=== PATIENT | female | born 1975 | race African-American/Black ===

== ENCOUNTER 2019-12-10 09:55 | Emergency (ER) | payer SELFPAY ==
[~2019-12-10] VITALS: Ht 180.3 cm; Wt 149.7 kg
[2019-12-10 09:58] VITALS: BP 159/100
--- NOTE | 2019-12-10 10:08 | NUR ---
DR CARVALHO AT BEDSIDE EVALUATING PT.
--- NOTE | 2019-12-10 10:25 | NUR ---
PT C/O 2 DAYS COUGH ,NO FEVER PREVIOUS HXS OF COPD.PT AWAKE , ALERT, AFIBRILE , AMBULATORY WITH STEADY GAIT , SCE ,COARSE BS BLF , ROUND SOFT NABS NONTENDER ABDOMEN.
[2019-12-10 10:29] VITALS: BP 159/98
--- NOTE | 2019-12-10 10:30 | NUR ---
Patient discharged with v/s stable. Written and verbal after care instructions given and explained regarding copd. Patient alert, oriented and verbalized understanding of instructions. Ambulatory with steady gait. All questions addressed prior to discharge. ID band removed. Patient advised to follow up with PMD. Rx of prednisone and codiene po4 given. Patient educated on indication of medication including possible reaction and side effects. Opportunity to ask questions provided and answered.
== END 2019-12-10 10:30 | disposition home or self-care (01) ==
LOC: MED 09:55 → EEVIPCON 09:55 → MED 10:30
DX: J44.1 Chronic obstructive pulmonary disease with (acute) exacerbation (principal); Z88.8 Allergy status to other drugs, medicaments and biological substances; Z98.890 Other specified postprocedural states
CPT/HCPCS: 99283

== ENCOUNTER 2020-02-14 13:16 | Emergency (ER) | payer SELFPAY ==
[~2020-02-14] VITALS: Ht 180.3 cm; Wt 148.8 kg
[2020-02-14 13:21] VITALS: BP 169/95
--- NOTE | 2020-02-14 13:32 | NUR ---
45 Y/O FEMALE C/O ACUTE ON CHRONIC COUGH R/T COPD EXACERBATION SINCE TUESDAY. PT WAS TESTED TUESDAY FOR COVID AND WAS NEGATIVE. PT DENIES ANY FEVER/CHILLS, SOB, CONTACT WITH ANY COVID PTS. RESP EVEN AND UNLABORED. MILD WHEEZING HEARD IN BILAT LOBES. PT STATES SHE TOOK HER NEBULIZING TREATMENTS AT HOME TODAY WITH NO RELIEF.
[2020-02-14 14:08] VITALS: BP 158/91
--- NOTE | 2020-02-14 14:08 | NUR ---
Patient discharged with v/s stable. Written and verbal after care instructions given and explained. Patient alert, oriented and verbalized understanding of instructions. Ambulatory with steady gait. All questions addressed prior to discharge. ID band removed. Patient advised to follow up with PMD. Rx of CODEINE PHOSPHATE/PROMETHAZINE HYDROCHLORIDE 10MG AND PREDNISONE 20 MG given. Patient educated on indication of medication including possible reaction and side effects. Opportunity to ask questions provided and answered.
== END 2020-02-14 14:08 | disposition home or self-care (01) ==
LOC: MED 13:16
DX: J44.1 Chronic obstructive pulmonary disease with (acute) exacerbation (principal); R03.0 Elevated blood-pressure reading, without diagnosis of hypertension; Z88.8 Allergy status to other drugs, medicaments and biological substances
CPT/HCPCS: 99283

== ENCOUNTER 2020-07-19 13:43 | Emergency (ER) | payer SELFPAY ==
[~2020-07-19] VITALS: Ht 180.3 cm; Wt 154.2 kg
[2020-07-19 14:00] VITALS: BP 142/69
--- NOTE | 2020-07-19 14:55 | NUR ---
Patient discharged with v/s stable. Written and verbal after care instructions given and explained. Patient alert, oriented and verbalized understanding of instructions. Ambulatory with steady gait. All questions addressed prior to discharge. ID band removed. Patient advised to follow up with PMD. Rx of CODEINE, PREDNISONE given. Patient educated on indication of medication including possible reaction and side effects. Opportunity to ask questions provided and answered.
--- NOTE | 2020-07-19 14:55 | NUR ---
C/O COUGH, WHEEZING SINCE TUESDAY. STATES TESTED FOR COVID THIS TUESDAY AND RESULTS WERE NEGATIVE HX COPD
[2020-07-19 14:56] VITALS: BP 142/69
== END 2020-07-19 14:55 | disposition home or self-care (01) ==
LOC: MED 13:43
DX: J44.9 Chronic obstructive pulmonary disease, unspecified (principal); Z88.8 Allergy status to other drugs, medicaments and biological substances
CPT/HCPCS: 99283

== ENCOUNTER 2020-12-15 12:11 | Emergency (ER) | payer SELFPAY ==
[~2020-12-15] VITALS: Ht 180.3 cm; Wt 169.2 kg
[2020-12-15 12:18] VITALS: BP 146/90
--- NOTE | 2020-12-15 12:26 | NUR ---
Patient ambulated to bed 04 with steady/even gait.
--- NOTE | 2020-12-15 12:27 | NUR ---
45 y/o F brought in from home with c/c cough x 4-5 days. Patient presents A&Ox4, ambulatory, and states exacerbating factors as the recent dry weather while at a birthday constitution party. Patient reports this has happened in the past and is alleviated with prednisone and cough medication. Patient states 2 Albuterol, 1 Atrovent nebulized treatment +1 puff of trelegy and +1 puff of inhaler without relief. Patient states she is not on home O2; denies fever/chills, SOB, chest pain, COVID exposure, headache, dizziness, N/V/D, leg pain. Patient states completed both [employer] Covid vaccines, and recent negative Covid test on Tuesday12/13/2020. Pt placed onto parachute mender. Respirations even/unlabored, SpO2 100% on room air. Lung sounds CTA; pt states inhaler helped with the wheezing prior to arrival. Bed locked in lowest position, side rails x1, call light in reach. PMH: COPD Meds: Atrovent, Albuterol, Breo, Trelegy Allergies: Benzonatate, guaifenesin Sx: C-sections
[2020-12-15] MEDS ORDERED: TYLCODL PO (13:22)
[2020-12-15] MEDS ORDERED: PRED20TA5 PO (13:22)
[2020-12-15] MEDS ORDERED: AZIT250T4 PO (13:22)
[2020-12-15 13:44] VITALS: BP 146/90
--- NOTE | 2020-12-15 13:45 | NUR ---
Patient discharged with v/s stable. Written and verbal after care instructions given and explained. Patient alert, oriented and verbalized understanding of instructions. Ambulatory with steady gait. All questions addressed prior to discharge. ID band removed. Patient advised to follow up with PMD. Rx of ZITHROMAX, PREDNISONE, AND ACETAMINOPHEN WITH CODEINE given. Patient educated on indication of medication including possible reaction and side effects. Opportunity to ask questions provided and answered.
== END 2020-12-15 13:45 | disposition home or self-care (01) ==
LOC: MED 12:11
DX: J20.9 Acute bronchitis, unspecified (principal); J44.9 Chronic obstructive pulmonary disease, unspecified; Z98.890 Other specified postprocedural states; Z79.2 Long term (current) use of antibiotics; Z79.899 Other long term (current) drug therapy; Z79.891 Long term (current) use of opiate analgesic; Z88.8 Allergy status to other drugs, medicaments and biological substances
CPT/HCPCS: 99283